=== PATIENT | female | born 1970 | race American Indian/Alaskan Native ===

== ENCOUNTER 2016-05-31 08:40 | Outpatient (CLI) | payer BC ==
--- NOTE | 2016-05-31 14:10 | Mammography Report ---
BILATERAL DIGITAL SCREENING MAMMOGRAM with CAD: 05/31/16 08:40:00 CLINICAL: Routine screening. COMPARISON:05/10/14 FINDINGS: The breasts are heterogeneously dense, which may obscure small masses.Bilateral asymmetries require additional imaging. No architectural distortion or suspicious calcifications. IMPRESSION: Bilateral asymmetries requiring additional imaging. BI-RADS CATEGORY: 0--Needs Additional Imaging RECOMMENDATION: Recall for bilateral spot compression views and bilateral breast ultrasound if needed. COMMENT: Patient follow-up letters are generated by our [employer] application.
== END 2016-05-31 08:41 | disposition home or self-care (01) ==
LOC: SPVWC 08:40
PROVIDERS: ATTEND Obstetrics & Gynecology
DX: Z12.31 Encounter for screening mammogram for malignant neoplasm of breast (principal)
CPT/HCPCS: 77067; G0202

== ENCOUNTER 2016-06-14 08:54 | Outpatient (CLI) | payer BC ==
--- NOTE | 2016-06-14 09:57 | Mammography Report ---
BILATERAL DIGITAL DIAGNOSTIC MAMMOGRAM : 06/14/16 08:54:00 CLINICAL: Recalled for bilateral asymmetries. COMPARISON:05/31/16 screening FINDINGS: ML and spot compression views of each breast were performed. Satisfactory effacement of the previously described asymmetry on the spot views. The lateral views are negative. IMPRESSION: Negative Mammogram. BI-RADS CATEGORY: 1 -- Negative RECOMMENDATION: Routine mammographic screening in one year. ACR BI-RADS MAMMOGRAPHIC CODES: 0 = Needs additional imaging evaluation; 1 = Negative; 2 = Benign; 3 = Probably benign; 4 = Suspicious; 5 = Malignant; 6 = Known biopsy-proven malignancy COMMENT: 1. Dense breast tissue, i.e., adenosis, fibrocystic changes, etc., may obscure an underlying neoplasm. 2. Approximately 10% of cancers are not detected with mammography. 3. A negative mammography report should not delay biopsy if a clinically suspicious mass is present. COMMENT: Patient follow-up letters are generated via our [employer] application.
== END 2016-06-14 08:55 | disposition home or self-care (01) ==
LOC: SPVWC 08:54
PROVIDERS: ATTEND Obstetrics & Gynecology
DX: N64.89 Other specified disorders of breast (principal)
CPT/HCPCS: 77066; G0204

== ENCOUNTER 2017-12-02 09:29 | Outpatient (CLI) | payer BC ==
--- NOTE | 2017-12-02 10:17 | Mammography Report ---
Bilateral mammogram: Compared to 06/14/16 and 05/31/16. CAD study utilized. Findings: Heterogeneous breast parenchyma bilaterally. No mass or microcalcification. Benign density right breast. Benign axillary nodes. Impression: Benign findings. Annual followup recommended. BI-RADS CATEGORY: 2 = Benign ACR BI-RADS MAMMOGRAPHIC CODES: 0 = Needs additional imaging evaluation; 1 = Negative; 2 = Benign; 3 = Probably benign; 4 = Suspicious; 5 = Malignant; 6 = Known biopsy-proven malignancy COMMENT: 1. Dense breast tissue, i.e., adenosis, fibrocystic changes, etc., may obscure an underlying neoplasm. 2. Approximately 10% of cancers are not detected with mammography. 3. A negative mammography report should not delay biopsy if a clinically suspicious mass is present. COMMENT: Patient follow-up letters are generated in [employer].
== END 2017-12-02 09:30 | disposition home or self-care (01) ==
LOC: SPVWC 09:29
PROVIDERS: ATTEND Obstetrics & Gynecology
DX: Z12.31 Encounter for screening mammogram for malignant neoplasm of breast (principal)
CPT/HCPCS: 77067

== ENCOUNTER 2018-12-04 10:16 | Outpatient (CLI) | payer BC ==
--- NOTE | 2018-12-05 10:32 | Mammography Report ---
DIGITAL SCREENING MAMMOGRAM WITH CAD, 12/04/2018 INDICATION: Routine screening mammography. TECHNIQUE: Digital k 2D mammography was obtained in the craniocaudal and mediolateral oblique projec tions. This examination was interpreted with the benefit of Computer-Aided Detection analysis. COMPARISON: 12/02/2017 and mammograms going back to 05/10/2014 FINDINGS: Breast Density: The breasts are heterogeneously dense, which may obscure small masses. Bilateral parenchymal asymmetries require additional imaging. No architectural distortion or suspicio us calcifications. IMPRESSION: Bilateral asymmetries requiring additional workup. Recommend recall for bilateral spot co mpression views and bilateral breast ultrasound if needed. Follow up recommendation: Special View: Spot Category 0: Incomplete. Needs additional imaging evaluation and/or prior mammograms for comparison. A "normal" or negative report should not discourage follow up or biopsy of a clinically significant f inding. A written summary of these findings will be mailed to the patient. The patient will be entered into a mammography reporting system which will generate a reminder letter for the patient's next appointmen t at the appropriate interval. [employer] recommends yearly mammograms starting at age 40 and continuing as l bria as a woman is in good health. Breast MRI is recommended for women with an approximate 20-25% or greater lifetime risk of breast cancer, including women with a strong family history of breast or ova krystle cancer or who have been treated for Hodgkin's disease. Signer Name: Twan Norris MD Signed: 12/05/2018 10:28 AM Workstation Name: [id number]
== END 2018-12-04 10:17 | disposition home or self-care (01) ==
LOC: SPVWC 10:16
PROVIDERS: ATTEND Obstetrics & Gynecology
DX: Z12.31 Encounter for screening mammogram for malignant neoplasm of breast (principal)
CPT/HCPCS: 77067